=== PATIENT | male | born 1945 | race Caucasian/White ===

== ENCOUNTER 2021-01-29 06:05 | Emergency (ER) | payer MEDICARE ==
[~2021-01-29] VITALS: Ht 175.3 cm; Wt 92.0 kg
[~2021-01-29 06:05] MED LIST: DIPH-423 PO; NO HOME MEDS; PRED20TA PO
[2021-01-29] MEDS ORDERED: normal saline 1000ML IV soln IVB ONE ×2 (06:25→07:55)
[2021-01-29] MEDS ORDERED: morphine 4 MG/ML inj SYRINge IV PRN (06:25)
[2021-01-29] MEDS ORDERED: ondansetron/PF 4mg/2ml inj IV ONE (06:25)
[2021-01-29] MEDS ORDERED: ketorolac trometh. 30mg/ml inj. IV ONE (06:25)
[2021-01-29 07:01] LABS: BASOPHILS % (AUTO) 0.2 % (0-1); EOSINOPHILS # (AUTO) 0.1 X10'3 (0-0.9); EOSINOPHILS % (AUTO) 0.9 % (0-6); HEMATOCRIT 36.6 % (42.0-52.0); HEMOGLOBIN 12.6 g/dl (14.0-17.9); LYMPHOCYTES % (AUTO) 10.9 % (21-51); MEAN CORPUSCULAR HEMOGLOBIN 31.8 PG (27.0-31.0); MEAN CORPUSCULAR HGB CONC 34.4 g/dL (33.0-36.5); MEAN CORPUSCULAR VOLUME 92.4 FL (78-98); MEAN PLATELET VOLUME 7.3 FL (7.4-10.4); MONOCYTES # (AUTO) 0.5 X10'3 (0-0.9); MONOCYTES % (AUTO) 5.6 % (2-12); NEUTROPHILS # (AUTO) 7.3 X10'3 (1.8-7.7); NEUTROPHILS % (AUTO) 82.4 % (42-75); PLATELET COUNT 144 X10'3 (140-440); RED BLOOD COUNT 3.96 X10'6 (4.70-6.10); RED CELL DISTRIBUTION WIDTH 13.4 % (11.5-14.5); WHITE BLOOD COUNT 8.8 X10'3 (4.5-11.0)
[2021-01-29 07:11] LABS: ALANINE AMINOTRANSFERASE 15 U/L (12-78); ALBUMIN 2.6 G/DL (3.4-5.0); ALKALINE PHOSPHATASE 52 IU/L (46-116); ANION GAP 10 (8-16); ASPARTATE AMINO TRANSFERASE 12 U/L (10-37); BILIRUBIN,TOTAL 0.6 MG/DL (0.1-1.0); BLOOD UREA NITROGEN 18 MG/DL (7-18); BUN/CREATININE RATIO 25.4 (5.4-32.0); CALCIUM 6.7 MG/DL (8.5-10.1); CHLORIDE 113 MMOL/L (99-107); CREATININE 0.71 MG/DL (0.60-1.10); GLUCOSE 132 MG/DL (70-104); LIPASE 145 U/L (73-393); SODIUM 146 MMOL/L (135-145); TOTAL CARBON DIOXIDE 22.7 MMOL/L (24-32); TOTAL PROTEIN 5.2 G/DL (6.4-8.2); eGFR > 90 ML/MIN
[2021-01-29 07:20] LABS: POTASSIUM 2.7 MMOL/L (3.5-5.1)
[2021-01-29] MEDS ORDERED: potassium Cl 20 mEq SR tablet PO ONE (07:55)
[2021-01-29] MEDS ORDERED: POTASSIUM BICARB 20meq eff tab 20 MEQ TABLET.EFF PO ONE (08:30)
[2021-01-29] MEDS: potassium Cl 10 mEq/100mL bag IV SCH ×2 (08:34→10:01)
[2021-01-29] MEDS ORDERED: HYDR-3965 PO (09:28)
[2021-01-29] MEDS ORDERED: POTA20PA40 PO (09:28)
[2021-01-29] MEDS ORDERED: ONDA4TAB12 PO (09:28)
[2021-01-29 10:30] LABS: CLARITY,URINE SLIGHTLY CLOUDY (Clear); COLOR,URINE STRAW (Yellow); GLUCOSE, URINE NEGATIVE (Neg); KETONES,URINE NEGATIVE (Neg); LEUKOCYTE ESTERASE ,URINE NEGATIVE (Neg); NITRITES, URINE NEGATIVE (Neg); OCCULT BLOOD,URINE LARGE (Neg); PROTEIN,URINE NEGATIVE (Neg); UROBILINOGEN,URINE 0.2 E.U/dL (0.2-1.0)
[2021-01-29 10:36] LABS: UA COLLECTION TYPE CLN CATCH MIDSTREAM
[2021-01-29 10:40] LABS: SQUAMOUS EPITHELIAL CELL,UR FEW /LPF (FEW)
[2021-01-29 10:41] LABS: BACTERIA,URINE NONE SEEN /HPF (Neg); WBC,URINE NONE SEEN /HPF (0-4)
[2021-01-29 11:24] VITALS: BP 123/77
== END 2021-01-29 11:25 | disposition home or self-care (01) ==
LOC: ER 06:06
DX: N20.0 Calculus of kidney (principal); E87.6 Hypokalemia; R10.84 Generalized abdominal pain; R50.9 Fever, unspecified; R11.0 Nausea; K59.00 Constipation, unspecified; E05.90 Thyrotoxicosis, unspecified without thyrotoxic crisis or storm; Z98.890 Other specified postprocedural states; Z79.899 Other long term (current) drug therapy
CPT/HCPCS: 36415; 74176; 80053; 81001; 83690; 85025; 96361; 96365; 96375; 99285; J1885; J2270; J2405; J3480; J7030; 96366

== ENCOUNTER 2022-05-15 07:24 | Emergency (ER) | payer MEDICARE ==
[~2022-05-15] VITALS: Ht 175.3 cm; Wt 95.0 kg
[~2022-05-15 07:24] MED LIST changes: +ONDA4TAB12 PO; +POTA20PA40 PO
[2022-05-15 07:30] VITALS: BP 151/78
[2022-05-15 08:23] LABS: CLARITY,URINE TURBID (Clear); COLOR,URINE BROWN (Yellow); GLUCOSE, URINE NEGATIVE (Neg); KETONES,URINE NEGATIVE (Neg); LEUKOCYTE ESTERASE ,URINE NEGATIVE (Neg); NITRITES, URINE NEGATIVE (Neg); OCCULT BLOOD,URINE LARGE (Neg); PH,URINE 7.5 (4.8-8.0); PROTEIN,URINE 100 mg/dl (Neg); UROBILINOGEN,URINE 0.2 E.U/dL (0.2-1.0)
[2022-05-15 08:25] LABS: BASOPHILS % (AUTO) 0.2 % (0-1); EOSINOPHILS # (AUTO) 0.1 X10'3 (0-0.9); EOSINOPHILS % (AUTO) 0.6 % (0-6); HEMATOCRIT 45.6 % (42.0-52.0); HEMOGLOBIN 15.6 g/dl (14.0-17.9); LYMPHOCYTES % (AUTO) 9.9 % (21-51); MEAN CORPUSCULAR HEMOGLOBIN 31.5 PG (27.0-31.0); MEAN CORPUSCULAR HGB CONC 34.1 g/dL (33.0-36.5); MEAN CORPUSCULAR VOLUME 92.2 FL (78-98); MONOCYTES # (AUTO) 0.4 X10'3 (0-0.9); MONOCYTES % (AUTO) 4.3 % (2-12); NEUTROPHILS # (AUTO) 8.6 X10'3 (1.8-7.7); PLATELET COUNT 175 X10'3 (140-440); RED BLOOD COUNT 4.95 X10'6 (4.70-6.10); RED CELL DISTRIBUTION WIDTH 13.3 % (11.5-14.5); WHITE BLOOD COUNT 10.1 X10'3 (4.5-11.0)
[2022-05-15 08:27] LABS: UA COLLECTION TYPE CLN CATCH MIDSTREAM
[2022-05-15 08:35] LABS: RBC,URINE TNTC /HPF (0-2)
[2022-05-15 08:36] LABS: SQUAMOUS EPITHELIAL CELL,UR FEW /LPF (FEW)
[2022-05-15 08:38] LABS: ALANINE AMINOTRANSFERASE 14 U/L (12-78); ALBUMIN 3.7 G/DL (3.4-5.0); ALBUMIN/GLOBULIN RATIO 1.1 (1.1-1.5); ALKALINE PHOSPHATASE 71 IU/L (46-116); ANION GAP 10 (8-16); ASPARTATE AMINO TRANSFERASE 17 U/L (10-37); BLOOD UREA NITROGEN 22 MG/DL (7-18); BUN/CREATININE RATIO 21.4 (5.4-32.0); CALCIUM 8.8 MG/DL (8.5-10.1); CHLORIDE 106 MMOL/L (99-107); CREATININE 1.03 MG/DL (0.60-1.10); GLUCOSE 157 MG/DL (70-104); POTASSIUM 3.8 MMOL/L (3.5-5.1); SODIUM 140 MMOL/L (135-145); TOTAL CARBON DIOXIDE 23.9 MMOL/L (24-32); TOTAL PROTEIN 7.2 G/DL (6.4-8.2); eGFR 70 ML/MIN
[2022-05-15 08:39] LABS: BACTERIA,URINE FEW /HPF (Neg)
[2022-05-15 08:43] LABS: WBC,URINE 0-4 /HPF (0-4)
[2022-05-15] MEDS ORDERED: morphine 4 MG/ML inj SYRINge IV PRN (09:05)
[2022-05-15] MEDS ORDERED: ondansetron/PF 4mg/2ml inj IV ONE (09:05)
[2022-05-15] MEDS ORDERED: normal saline 1000ML IV soln IVB ONE (09:05)
[2022-05-15] MEDS ORDERED: ketorolac trometh. 30mg/ml inj. IV ONE (09:05)
[2022-05-15] MEDS ORDERED: tamsulosin 0.4mg capsule PO ONE (09:46)
[2022-05-15] MEDS ORDERED: TRAM50TA2 PO (10:35)
[2022-05-15] MEDS ORDERED: NAPR-56 PO (10:35)
[2022-05-15] MEDS ORDERED: FLO0.4C PO (10:35)
[2022-05-15] MEDS ORDERED: ONDA4TAB12 PO (10:35)
== END 2022-05-15 10:56 | disposition home or self-care (01) ==
LOC: ER 07:24
DX: N23 Unspecified renal colic (principal); E05.90 Thyrotoxicosis, unspecified without thyrotoxic crisis or storm
CPT/HCPCS: 36415; 76770; 80053; 81001; 85025; 96361; 96374; 96375; 99284; J1885; J2405; J7030